=== PATIENT | female | born 1995 | race African-American/Black ===

== ENCOUNTER 2017-02-01 23:08 | Emergency (ER) | payer MEDICAID ==
[2017-02-01 23:09] VITALS: BP 127/79; PULSE 93; RESP 16; TEMP 98.5; O2SAT 97
[2017-02-01 23:30] VITALS: RESP 18; O2SAT 98
[2017-02-01] MEDS ORDERED: SODIUM CHLORIDE 0.9% FLUSH 10 ML FLUSH IVF PRN (23:30)
[2017-02-01 23:42] LABS: AUTOMATED NEUTROPHIL # 6.8 TH/MM3 (1.8-7.7); BASOPHIL # 0.1 TH/MM3 (0-0.2); BASOPHIL % 0.7 % (0.0-2.0); EOSINOPHIL # 0.3 TH/MM3 (0-0.4); EOSINOPHIL % 2.4 % (0.0-4.0); HEMATOCRIT 40.9 % (35.0-46.0); HEMO FLAGS DIFF FINAL; LYMPH % 35.7 % (9.0-44.0); LYMPHOCYTE # 4.3 TH/MM3 (1.0-4.8); MEAN CORPUSCULAR HEMOGLOBIN 27.3 PG (27.0-34.0); MEAN CORPUSCULAR HGB CONC 32.5 % (32.0-36.0); MONO % 4.6 % (0.0-8.0); NEUT % 56.6 % (16.0-70.0); PLATELET COUNT 402 TH/MM3 (150-450); RED BLOOD COUNT 4.87 MIL/MM3 (4.00-5.30); RED CELL DISTRIBUTION WIDTH 13.9 % (11.6-17.2)
[2017-02-01 23:44] LABS: BLOOD, URINE NEG (NEG); COMMENT (UR) CULT NOT INDICATED; CULTURE IF INDICATED CULT NOT INDICATED; GLUCOSE,URINE NEG (NEG); KETONE, URINE NEG (NEG); MUCUS URINE FEW /lpf (OCC); NITRITE,URINE NEG (NEG); SQUAMOUS EPITHELIAL CELL URINE 7 /hpf (0-5); URINE COLOR YELLOW (YELLW/STRAW)
--- NOTE | 2017-02-01 23:56 | PD ---
HPI Chief Complaint: Chest Pain Time Seen by Provider: 23:43 Travel History International Travel<30 days: No Contact w/Intl Traveler<30days: No Traveled to known affect area: No History of Present Illness HPI Patient is a 21-year-old female who presents to emergency room with chest pain. Patient reports that chest pain began last night while she was breast-feeding , reports that she felt a sharp and stabbing pain to her left chest with associated shortness of breath. Patient reports that symptoms have been constant all day, reports that she was concerned as nothing makes pain better or worse. Patient denies history of hypertension, hyperlipidemia, diabetes, [place] or ACS. Patient is unsure if she has a family history of early coronary artery disease. Patient reports that she is a nonsmoker, no history of PE or DVT. She is not on any bcp's at this time. Denies any recent travels or trips. Denies any recent immobilization. PFSH Past Medical History Medical History: Denies Significant Hx Asthma: Yes Diminished Hearing: No Respiratory: Yes (ASTHMA) Immunizations Current: Yes ?: Not LMP: 12/29 : 2 Para: 2 Past Surgical History Surgical History: No Previous Surgery Social History Alcohol Use: No Tobacco Use: No Substance Use: No Allergies-Medications (Allergen,Severity, Reaction): Coded Allergies: bee venom protein (honey bee) (Verified Allergy, Severe, Swelling, 02/01/17 ) Fish Containing Products (Verified Allergy, Mild, Swelling, 02/01/17) cephalexin (Verified Allergy, Mild, THROAT SWELLING, 02/01/17) penicillin G (Verified Allergy, Mild, THROAT SWELLING, 02/01/17) Reported Meds & Prescriptions Reported Meds & Active Scripts Active No Active Prescriptions or Reported Medications Review of Systems General / Constitutional: No: Fever Eyes: No: Visual changes HENT: No: Headaches Cardiovascular: Positive: Chest Pain or Discomfort Respiratory: Positive: Shortness of Breath Gastrointestinal: No: Abdominal Pain Genitourinary: No: Dysuria Musculoskeletal: No: Pain Skin: No Rash Neurologic: No: Weakness Psychiatric: No: Depression Endocrine: No: Polydipsia Hematologic/Lymphatic: No: Easy Bruising Physical Exam Narrative GENERAL: No acute distress, nontoxic SKIN: Focused skin assessment warm/dry. HEAD: Atraumatic. Normocephalic. EYES: Pupils equal and round. No scleral icterus. No injection or drainage. ENT: No nasal bleeding or discharge. Mucous membranes pink and moist. NECK: Trachea midline. No JVD. CARDIOVASCULAR: Regular rate and rhythm. No murmur appreciated. Chest pain is reproducible with palpation of left upper chest wall RESPIRATORY: No accessory muscle use. Clear to auscultation. Breath sounds equal bilaterally. GASTROINTESTINAL: Abdomen soft, non-tender, nondistended. Hepatic and splenic margins not palpable. MUSCULOSKELETAL: No obvious deformities. No clubbing. No cyanosis. No edema. NEUROLOGICAL: Awake and alert. No obvious cranial nerve deficits. Motor grossly within normal limits. Normal speech. PSYCHIATRIC: Appropriate mood and affect; insight and judgment normal. Data Data Last Documented VS Vital Signs Date Time Temp Pulse Resp B/P (MAP) Pulse Ox O2 Delivery O2 Flow Rate FiO2 02/01/17 23:30 18 98 Room Air 02/01/17 23:09 98.5 93 Orders Orders Electrocardiogram (02/01/17 23:21) Basic Metabolic Panel (Bmp) (02/01/17 23:21) Ckmb (Isoenzyme) Profile (02/01/17 23:21) Complete Blood Count With Diff (02/01/17 23:21) D-Dimer (02/01/17 23:21) Prothrombin Time / Inr (Pt) (02/01/17 23:21) Act Partial Throm Time (Ptt) (02/01/17 23:21) Troponin I (02/01/17 23:21) Chest, Single Ap (02/01/17 23:21) Ecg Monitoring (02/01/17 23:21) Iv Access Insert/Monitor (02/01/17 23:21) Oximetry (02/01/17 23:21) Sodium Chloride 0.9% Flush (Ns Flush) (02/01/17 23:30) Ed Urine Pregnancytest Poc (02/01/17 23:21) Urinalysis - C+S If Indicated (02/01/17 23:22) Drug Screen, Random Urine (02/01/17 23:23) Ketorolac Inj (Toradol Inj) (02/02/17 00:00) Ct Pulmonary Angiogram (02/02/17 00:26) Iohexol 350 Inj (Omnipaque 350 Inj) (02/02/17 00:50) Electrocardiogram (02/02/17 ) Labs Laboratory Tests Test 02/01/17 23:29 White Blood Count 12.0 TH/MM3 Red Blood Count 4.87 MIL/MM3 Hemoglobin 13.3 GM/DL Hematocrit 40.9 % Mean Corpuscular Volume 84.0 FL Mean Corpuscular Hemoglobin 27.3 PG Mean Corpuscular Hemoglobin Concent 32.5 % Red Cell Distribution Width 13.9 % Platelet Count 402 TH/MM3 Mean Platelet Volume 7.5 FL Neutrophils (%) (Auto) 56.6 % Lymphocytes (%) (Auto) 35.7 % Monocytes (%) (Auto) 4.6 % Eosinophils (%) (Auto) 2.4 % Basophils (%) (Auto) 0.7 % Neutrophils # (Auto) 6.8 TH/MM3 Lymphocytes # (Auto) 4.3 TH/MM3 Monocytes # (Auto) 0.6 TH/MM3 Eosinophils # (Auto) 0.3 TH/MM3 Basophils # (Auto) 0.1 TH/MM3 CBC Comment DIFF FINAL Differential Comment Prothrombin Time 10.4 SEC Prothromb Time International Ratio 0.9 RATIO Activated Partial Thromboplast Time 28.5 SEC D-Dimer Quantitative (PE/DVT) 1.01 MG/L FEU Urine Color YELLOW Urine Turbidity HAZY Urine pH 6.0 Urine Specific [place] 1.031 Urine Protein TRACE mg/dL Urine Glucose (UA) NEG mg/dL Urine Ketones NEG mg/dL Urine Occult Blood NEG Urine Nitrite NEG Urine Bilirubin NEG Urine Urobilinogen LESS THAN 2.0 MG/DL Urine Leukocyte Esterase MOD Urine RBC 1 /hpf Urine WBC 2 /hpf Urine Squamous Epithelial Cells 7 /hpf Urine Amorphous Sediment RARE Urine Mucus FEW /lpf Microscopic Urinalysis Comment CULT NOT INDICATED Blood Urea Nitrogen 11 MG/DL Creatinine 0.84 MG/DL Random Glucose 80 MG/DL Calcium Level 9.4 MG/DL Sodium Level 140 MEQ/L Potassium Level 3.7 MEQ/L Chloride Level 108 MEQ/L Carbon Dioxide Level 24.6 MEQ/L Anion Gap 7 MEQ/L Estimat Glomerular Filtration Rate 103 ML/MIN Total Creatine Kinase 97 U/L Troponin I LESS THAN 0.02 NG/ML Urine Opiates Screen NEG Urine Barbiturates Screen NEG Urine Amphetamines Screen NEG Urine Benzodiazepines Screen NEG Urine Cocaine Screen NEG Urine Cannabinoids Screen POS MDM Medical Decision Making Medical Screen Exam Complete: Yes Emergency Medical Condition: Yes Medical Record Reviewed: Yes Interpretation(s) EKG at 2335: NSR at 78bpm, qt/qtc: 386/419, no acute st or t wave changes Vital Signs Date Time Temp Pulse Resp B/P (MAP) Pulse Ox O2 Delivery O2 Flow Rate FiO2 02/01/17 23:30 18 98 Room Air 02/01/17 23:09 98.5 93 16 127/79 (95) 97 Room Air Differential Diagnosis Differential includes costochondritis, ACS, arrhythmia, electrolyte abnormality , PE, pneumothorax, pericarditis Narrative Course 21-year-old female who presents to emergency room complaints of chest pain. Chest pain has been ongoing since last night, pain is sharp and stabbing in nature and located her left chest. Patient has been constant, nothing makes pain better or worse Patient was placed on playground monitor upon arrival to the emergency room. Lab work including x-ray chest ordered. IV Toradol ordered. 1 set of ce was ordered to r/o infectious etiology of chest pain Vital Signs Date Time Temp Pulse Resp B/P (MAP) Pulse Ox O2 Delivery O2 Flow Rate FiO2 02/01/17 23:30 18 98 Room Air 02/01/17 23:09 98.5 93 16 127/79 (95) 97 Room Air Laboratory Tests Test 02/01/17 23:29 White Blood Count 12.0 TH/MM3 (4.0-11.0) Red Blood Count 4.87 MIL/MM3 (4.00-5.30) Hemoglobin 13.3 GM/DL (11.6-15.3) Hematocrit 40.9 % (35.0-46.0) Mean Corpuscular Volume 84.0 FL (80.0-100.0) Mean Corpuscular Hemoglobin 27.3 PG (27.0-34.0) Mean Corpuscular Hemoglobin Concent 32.5 % (32.0-36.0) Red Cell Distribution Width 13.9 % (11.6-17.2) Platelet Count 402 TH/MM3 (150-450) Mean Platelet Volume 7.5 FL (7.0-11.0) Neutrophils (%) (Auto) 56.6 % (16.0-70.0) Lymphocytes (%) (Auto) 35.7 % (9.0-44.0) Monocytes (%) (Auto) 4.6 % (0.0-8.0) Eosinophils (%) (Auto) 2.4 % (0.0-4.0) Basophils (%) (Auto) 0.7 % (0.0-2.0) Neutrophils # (Auto) 6.8 TH/MM3 (1.8-7.7) Lymphocytes # (Auto) 4.3 TH/MM3 (1.0-4.8) Monocytes # (Auto) 0.6 TH/MM3 (0-0.9) Eosinophils # (Auto) 0.3 TH/MM3 (0-0.4) Basophils # (Auto) 0.1 TH/MM3 (0-0.2) CBC Comment DIFF FINAL Differential Comment Prothrombin Time 10.4 SEC (9.8-11.6) Prothromb Time International Ratio 0.9 RATIO Activated Partial Thromboplast Time 28.5 SEC (24.3-30.1) D-Dimer Quantitative (PE/DVT) 1.01 MG/L FEU (0.00-0.50) Urine Color YELLOW (YELLW/STRAW) Urine Turbidity HAZY (CLEAR) Urine pH 6.0 (5.0-8.5) Urine Specific [place] 1.031 (1.002-1.035) Urine Protein TRACE mg/dL (NEG-TRACE) Urine Glucose (UA) NEG mg/dL (NEG) Urine Ketones NEG mg/dL (NEG) Urine Occult Blood NEG (NEG) Urine Nitrite NEG (NEG) Urine Bilirubin NEG (NEG) Urine Urobilinogen LESS THAN 2.0 MG/DL (LESS Urine Leukocyte Esterase MOD (NEG) Urine RBC 1 /hpf (0-3) Urine WBC 2 /hpf (0-5) Urine Squamous Epithelial Cells 7 /hpf (0-5) Urine Amorphous Sediment RARE Urine Mucus FEW /lpf (OCC) Microscopic Urinalysis Comment CULT NOT INDICATED Blood Urea Nitrogen 11 MG/DL (7-18) Creatinine 0.84 MG/DL (0.50-1.00) Random Glucose 80 MG/DL (74-106) Calcium Level 9.4 MG/DL (8.5-10.1) Sodium Level 140 MEQ/L (136-145) Potassium Level 3.7 MEQ/L (3.5-5.1) Chloride Level 108 MEQ/L (98-107) Carbon Dioxide Level 24.6 MEQ/L (21.0-32.0) Anion Gap 7 MEQ/L (5-15) Estimat Glomerular Filtration Rate 103 ML/MIN (>89) Total Creatine Kinase 97 U/L (26-192) Troponin I LESS THAN 0.02 NG/ML Urine Opiates Screen NEG (NEG) Urine Barbiturates Screen NEG (NEG) Urine Amphetamines Screen NEG (NEG) Urine Benzodiazepines Screen NEG (NEG) Urine Cocaine Screen NEG (NEG) Urine Cannabinoids Screen POS (NEG) Last Impressions Chest X-Ray 02/01/172320 Signed Impressions: Service Date/Time: Wednesday, February 01, 2017 23:39 - CONCLUSION: No acute disease. Shalom Rao Jr., MD Patient reports that she is feeling much better after the Toradol, patient does have positive d-dimer, discussed need for CTA to rule out PE. Patient consents to CTA. Last Impressions CT Angiography 02/02/17 0026 Signed Impressions: Service Date/Time: January 00:33 - CONCLUSION: Normal examination. Shalom Rao Jr., MD Chest X-Ray 02/01/172320 Signed Impressions: Service Date/Time: Wednesday, February 01, 2017 23:39 - CONCLUSION: No acute disease. Shalom Rao Jr., MD Repeat EKG with normal sinus rhythm at 71 beats a minute, no acute ST-T wave changes. Patient with a heart score of 0 Patient reports complete resolutions at this time after given toradol. Patient with most likely costochondritis, plan to discharge her home with anti- inflammatories. I reviewed all labs and all studies with patient in detail. Patient will follow-up with her primary doctor and will return to the emergency room as needed. Diagnosis Primary Impression: Acute costochondritis Patient Instructions: General Instructions Additional Instructions: Please follow-up with the primary care doctor and return to ER as needed Return to ER if symptoms return Med/Other Pt SpecificInfo: Prescription(s) given Scripts Ibuprofen (Ibuprofen) 600 Mg Tab 600 MG PO Q6H Y for Pain/Inflammation, #40 TAB 0 Refills Prov: Lu Zhang DO 02/02/17 Disposition: 01 DISCHARGE HOME Condition: Stable Lu Zhang DO Feb 01, 2017 23:56
[2017-02-01 23:57] LABS: ANION GAP 7 MEQ/L (5-15); BICARBONATE 24.6 MEQ/L (21.0-32.0); BLOOD UREA NITROGEN 11 MG/DL (7-18); CHLORIDE 108 MEQ/L (98-107); GLOMERULAR FILTRATION RATE 103 ML/MIN (>89); POTASSIUM 3.7 MEQ/L (3.5-5.1); SODIUM (NA) 140 MEQ/L (136-145)
--- NOTE | 2017-02-01 23:58 | RADRPT ---
EXAM DATE/TIME: 02/01/2017 23:39 [facility] COMPARISON: No previous studies available for comparison. INDICATIONS : Chest pain. MEDICAL HISTORY : Asthma. SURGICAL HISTORY : None. ENCOUNTER: Initial ACUITY: 1 day PAIN SCORE: 5/10 LOCATION: Bilateral chest FINDINGS: A single view of the chest demonstrates the lungs to be symmetrically aerated without evidence of mas s, infiltrate or effusion. The cardiomediastinal contours are unremarkable. Osseous structures are intact. CONCLUSION: No acute disease. Shalom Rao Jr., MD on February 01, 2017 at 23:56 Board Certified Radiologist. This report was verified electronically.
[2017-02-02] LABS: APTT (PATIENT) 28.5 SEC (24.3-30.1); INTERNATIONAL NORMALIZED RATIO 0.9 RATIO; PROTHROMBIN TIME - PATIENT 10.4 SEC (9.8-11.6)
[2017-02-02] MEDS ORDERED: KETOROLAC TROMETHAMINE 30 MG/ML (IVP) VIAL IV PUSH ONE
[2017-02-02 00:08] LABS: CREATINE KINASE 97 U/L (26-192)
[2017-02-02] MEDS ORDERED: IOHEXOL 350 MG/ML 10 ML VIAL (for RAD DIAG) IVCONTRAST ONE (00:50)
--- NOTE | 2017-02-02 00:55 | RADRPT ---
EXAM DATE/TIME: 02/02/2017 00:33 [facility] COMPARISON: No previous studies available for comparison. INDICATIONS : Chest pain and shortness of breath after drinking water. IV CONTRAST: 75 cc Omnipaque 350 (iohexol) IV RADIATION DOSE: 23.85 CTDIvol (mGy) MEDICAL HISTORY : None SURGICAL HISTORY : None. ENCOUNTER: Initial ACUITY: 1 day PAIN SCALE: 5/10 LOCATION: chest TECHNIQUE: Volumetric scanning of the chest was performed using a pulmonary embolism protocol MIP images were re constructed. Using automated exposure control and adjustment of the mA and/or kV according to patien t size, radiation dose was kept as low as reasonably achievable to obtain optimal diagnostic quality images. DICOM format image data is available electronically for review and comparison. Follow-up recommendations for detected pulmonary nodules are based at a minimum on nodule size and pa tient risk factors according to Fleischner Society Guidelines. FINDINGS: PULMONARY ARTERIES: No filling defects are seen in the pulmonary arteries through the segmental level. LUNGS: There is no consolidation or pneumothorax . No concerning pulmonary nodule is visualized. PLEURAE: There is no pleural thickening or pleural effusion. MEDIASTINUM: There is good visualization of the great vessels of the middle mediastinum. No evidence of mediastin al or hilar adenopathy/mass. MUSCULOSKELETAL: Within normal limits for patient age. MISCELLANEOUS: The visualized upper abdominal organs demonstrate no acute abnormality. CONCLUSION: Normal examination. Shalom Rao Jr., MD on February 02, 2017 at 0:52 Board Certified Radiologist. This report was verified electronically.
[2017-02-02] MEDS ORDERED: IBUP-232 PO (02:04)
--- NOTE | 2017-02-02 17:13 | EKG ---
Date Performed: 02/02/2017 Time Performed: 01:27:26 PTAGE: 21 years EKG: Sinus rhythm WITH SINUS ARRHYTHMIA NORMAL ECG Compared to the PREVIOUS TRACING , no significant change DOCTOR: Leobardo Sandhu Interpretating Date/Time 02/02/2017 17:11:07
--- NOTE | 2017-02-02 17:15 | EKG ---
Date Performed: 02/01/2017 Time Performed: 23:35:13 PTAGE: 21 years EKG: Sinus rhythm WITH SINUS ARRHYTHMIA NORMAL ECG NO PREVIOUS TRACING DOCTOR: Leobardo Sandhu Interpretating Date/Time 02/02/2017 17:14:52
== END 2017-02-02 02:20 | disposition home or self-care (01) ==
LOC: NEPE 23:08
DX: M94.0 Chondrocostal junction syndrome [Tietze] (principal); I49.8 Other specified cardiac arrhythmias; J45.909 Unspecified asthma, uncomplicated
CPT/HCPCS: 71010; 71275; 80048; 80307; 81001; 82550; 84484; 84703; 85025; 85379; 85610; 85730; 93005; 96374; 99285; J1885; Q9967

== ENCOUNTER 2017-09-20 15:34 | Emergency (ER) | payer MEDICAID ==
[~2017-09-20] VITALS: Ht 162.6 cm; Wt 127.2 kg
[~2017-09-20 15:34] MED LIST: IBUP-232 PO
[2017-09-20 15:46] VITALS: BP 118/60; PULSE 82; RESP 16; TEMP 97.7; O2SAT 98
[2017-09-20] MEDS ORDERED: SODIUM CHLOR 0.9% 1000 ML INJ 1,000 ML IV SCH (16:03)
[2017-09-20] MEDS ORDERED: SODIUM CHLORIDE 0.9% FLUSH 10 ML FLUSH IV FLUSH PRN (16:15)
[2017-09-20] MEDS ORDERED: ONDANSETRON ODT 4 MG TAB PO ONE (16:30)
--- NOTE | 2017-09-20 16:41 | PD ---
HPI Chief Complaint: [facility] Problem/Complaint Time Seen by Provider: 16:00 Travel History International Travel<30 days: No Contact w/Intl Traveler<30days: No Traveled to known affect area: No History of Present Illness HPI 22-year-old female presents to the emergency department with complaint of intermittent epigastric abdominal pain and pressure for the past 2 weeks. Reports nausea and vomiting onset this morning. Vomited 2 times. Has had something to drink without continued vomiting. Reports continued nausea. Denies fevers. Is also complaining of feeling faint and blurry vision that comes and goes for the past couple months, but occurred today at work prior to onset of the vomiting. Denies dysuria, hematuria, abnormal vaginal discharge or vaginal odor. Denies chest pain, shortness of breath. Reports being constipated for the past 2-3 weeks and having small, pebble-like bowel movements. Her last bowel movement was 2 days ago. Denies history of abdominal surgeries. Last menstrual period September 01. Denies contraception use. Symptoms are mild to moderate in severity. Says it is not a pain, but a discomfort, pressure, fullness. Intermittent. No known aggravating or relieving factors. Has tried taking Tylenol for relief of symptoms. No primary care provider. Allergies as listed on the chart. History of asthma. Has no other medical complaints. No other modifying factors or associated signs and symptoms. PFSH Past Medical History Asthma: Yes Diminished Hearing: No Respiratory: Yes (ASTHMA) Immunizations Current: Yes Tetanus Vaccination: Unknown Influenza Vaccination: No ?: Unknown LMP: SEPTEMBER 01 2017 : 3 Para: 3 Social History Alcohol Use: No Tobacco Use: No Substance Use: No Allergies-Medications (Allergen,Severity, Reaction): Coded Allergies: bee venom protein (honey bee) (Verified Allergy, Severe, Swelling, 02/01/17 ) Fish Containing Products (Verified Allergy, Mild, Swelling, 02/01/17) cephalexin (Verified Allergy, Mild, THROAT SWELLING, 02/01/17) penicillin G (Verified Allergy, Mild, THROAT SWELLING, 02/01/17) Reported Meds & Prescriptions Reported Meds & Active Scripts Active Diclofenac Sodium DR (Diclofenac Sodium) 75 Mg Tabdr 75 Mg PO BID Reglan (Metoclopramide HCl) 10 Mg Tab 10 Mg PO QID Ibuprofen 600 Mg Tab 600 Mg PO Q6H PRN Review of Systems Except as stated in HPI: all other systems reviewed are Neg Physical Exam Narrative GENERAL: Well-nourished, well-developed black female patient, in no acute distress; afebrile SKIN: Warm and dry. HEAD: Atraumatic. Normocephalic. EYES: Pupils equal and round. No scleral icterus. No injection or drainage. ENT: Mucosa pink and moist. Airway patent. NECK: Trachea midline. CARDIOVASCULAR: Regular rate and rhythm. No murmur appreciated. RESPIRATORY: No accessory muscle use. Clear to auscultation. Breath sounds equal bilaterally. GASTROINTESTINAL: Morbidly obese. Abdomen soft, tenderness on palpation to epigastric/right upper quadrant, nondistended. Hepatic and splenic margins not palpable. Bowel sounds are active 4 quadrants. Nonrigid. No rebound tenderness. No guarding. BACK: No CVA tenderness. MUSCULOSKELETAL: No obvious deformities. No clubbing. No cyanosis. No edema. NEUROLOGICAL: Awake and alert. Oriented 3. No obvious cranial nerve deficits. Motor grossly within normal limits. Normal speech. PSYCHIATRIC: Appropriate mood and affect; insight and judgment normal. Data Data Last Documented VS Vital Signs Date Time Temp Pulse Resp B/P (MAP) Pulse Ox O2 Delivery O2 Flow Rate FiO2 09/20/17 15:46 97.7 82 16 118/60 (79) 98 Orders Orders Urinalysis - C+S If Indicated (09/20/17 16:02) Ed Urine Pregnancytest Poc (09/20/17 16:02) Complete Blood Count With Diff (09/20/17 16:03) Comprehensive Metabolic Panel (09/20/17 16:03) Lipase (09/20/17 16:03) Iv Access Insert/Monitor (09/20/17 16:03) Sodium Chlor 0.9% 1000 Ml Inj (Ns 1000 M (09/20/17 16:03) Sodium Chloride 0.9% Flush (Ns Flush) (09/20/17 16:15) Ondansetron Odt (Zofran Odt) (09/20/17 16:30) Us Abdomen Gallbladder (09/20/17 ) Ketorolac Inj (Toradol Inj) (09/20/17 19:15) Diphenhydramine Inj (Benadryl Inj) (09/20/17 19:30) Prochlorperazine Inj (Compazine Inj) (09/20/17 19:30) Ed Discharge Order (09/20/17 20:20) Labs Laboratory Tests Test 09/20/17 16:30 09/20/17 18:00 White Blood Count 11.3 TH/MM3 Red Blood Count 4.41 MIL/MM3 Hemoglobin 12.3 GM/DL Hematocrit 36.5 % Mean Corpuscular Volume 82.7 FL Mean Corpuscular Hemoglobin 27.9 PG Mean Corpuscular Hemoglobin Concent 33.7 % Red Cell Distribution Width 13.5 % Platelet Count 323 TH/MM3 Mean Platelet Volume 8.4 FL Neutrophils (%) (Auto) 75.9 % Lymphocytes (%) (Auto) 18.4 % Monocytes (%) (Auto) 3.6 % Eosinophils (%) (Auto) 1.6 % Basophils (%) (Auto) 0.5 % Neutrophils # (Auto) 8.6 TH/MM3 Lymphocytes # (Auto) 2.1 TH/MM3 Monocytes # (Auto) 0.4 TH/MM3 Eosinophils # (Auto) 0.2 TH/MM3 Basophils # (Auto) 0.1 TH/MM3 CBC Comment DIFF FINAL Differential Comment Blood Urea Nitrogen 10 MG/DL Creatinine 0.71 MG/DL Random Glucose 91 MG/DL Total Protein 7.0 GM/DL Albumin 3.4 GM/DL Calcium Level 8.6 MG/DL Alkaline Phosphatase 94 U/L Aspartate Amino Transf (AST/SGOT) 9 U/L Alanine Aminotransferase (ALT/SGPT) 15 U/L Total Bilirubin 0.2 MG/DL Sodium Level 142 MEQ/L Potassium Level 3.7 MEQ/L Chloride Level 105 MEQ/L Carbon Dioxide Level 25.8 MEQ/L Anion Gap 11 MEQ/L Estimat Glomerular Filtration Rate 123 ML/MIN Lipase 100 U/L Urine Color LIGHT-YELLOW Urine Turbidity CLEAR Urine pH 7.0 Urine Specific [place] 1.017 Urine Protein NEG mg/dL Urine Glucose (UA) NEG mg/dL Urine Ketones NEG mg/dL Urine Occult Blood NEG Urine Nitrite NEG Urine Bilirubin NEG Urine Urobilinogen LESS THAN 2.0 MG/DL Urine Leukocyte Esterase TRACE Urine Squamous Epithelial Cells 4 /hpf Urine Mucus FEW /lpf Microscopic Urinalysis Comment CULT NOT INDICATED MDM Medical Decision Making Medical Screen Exam Complete: Yes Emergency Medical Condition: Yes Medical Record Reviewed: Yes Differential Diagnosis Cholelithiasis, cholecystitis, gastritis, constipation Narrative Course 22-year-old female with right upper quadrant abdominal pain 2 weeks and onset of nausea and vomiting today. Also complaining of episodes of dizziness and blurred vision that have been going on for the past few months. I discussed the patient with Dr. Zhang, my attending physician, and plan of care discussed. CBC, CMP, lipase, UPT, urinalysis, Zofran, Toradol, IV, IV fluid, right upper quadrant abdominal ultrasound ordered. UPT negative. CBC, CMP, lipase unremarkable. 1900: Report given to Alfredo Adrian PA-C at change of shift. See his note for final patient disposition. Urinalysis and ultrasound pending. Scripts Diclofenac Sodium DR (Diclofenac Sodium DR) 75 Mg Tabdr 75 MG PO BID, #20 TAB 0 Refills Prov: Lu Zhang DO 09/20/17 Metoclopramide (Reglan) 10 Mg Tab 10 MG PO QID, #20 TAB 0 Refills Prov: Lu Zhang DO 09/20/17 Nathalia Burton September 20, 2017 16:41
[2017-09-20 17:05] LABS: AUTOMATED NEUTROPHIL # 8.6 TH/MM3 (1.8-7.7); BASOPHIL # 0.1 TH/MM3 (0-0.2); BASOPHIL % 0.5 % (0.0-2.0); EOSINOPHIL # 0.2 TH/MM3 (0-0.4); EOSINOPHIL % 1.6 % (0.0-4.0); HEMATOCRIT 36.5 % (35.0-46.0); HEMOGLOBIN 12.3 GM/DL (11.6-15.3); LYMPH % 18.4 % (9.0-44.0); LYMPHOCYTE # 2.1 TH/MM3 (1.0-4.8); MEAN CELL VOLUME 82.7 FL (80.0-100.0); MEAN CORPUSCULAR HEMOGLOBIN 27.9 PG (27.0-34.0); MEAN CORPUSCULAR HGB CONC 33.7 % (32.0-36.0); MEAN PLATELET VOLUME 8.4 FL (7.0-11.0); MONO % 3.6 % (0.0-8.0); MONOCYTE # 0.4 TH/MM3 (0-0.9); NEUT % 75.9 % (16.0-70.0); PLATELET COUNT 323 TH/MM3 (150-450); RED BLOOD COUNT 4.41 MIL/MM3 (4.00-5.30); RED CELL DISTRIBUTION WIDTH 13.5 % (11.6-17.2); WHITE BLOOD COUNT 11.3 TH/MM3 (4.0-11.0)
[2017-09-20 17:33] LABS: ALBUMIN 3.4 GM/DL (3.4-5.0); AST (GOT) 9 U/L (15-37); BICARBONATE 25.8 MEQ/L (21.0-32.0); BLOOD UREA NITROGEN 10 MG/DL (7-18); CALCIUM 8.6 MG/DL (8.5-10.1); CHLORIDE 105 MEQ/L (98-107); CREATININE 0.71 MG/DL (0.50-1.00); GLOMERULAR FILTRATION RATE 123 ML/MIN (>89); GLUCOSE,RANDOM 91 MG/DL (74-106); SODIUM (NA) 142 MEQ/L (136-145)
[2017-09-20 17:38] LABS: ALKALINE PHOSPHATASE 94 U/L (45-117); ALT (GPT) 15 U/L (10-53); TOTAL BILIRUBIN ADULT 0.2 MG/DL (0.2-1.0)
[2017-09-20] MEDS ORDERED: KETOROLAC TROMETHAMINE 30 MG/ML (IVP) VIAL IV PUSH ONE (19:15)
--- NOTE | 2017-09-20 19:22 | RADRPT ---
EXAM DATE/TIME: 09/20/2017 18:47 [facility] COMPARISON: No previous studies available for comparison. INDICATIONS : Right upper quadrant pain. MEDICAL HISTORY : Asthma. SURGICAL HISTORY : None. ENCOUNTER: Initial ACUITY: 1 day PAIN SCORE: 7/10 LOCATION: Right upper quadrant MEASUREMENTS: LIVER: 21.4 cm length COMMON DUCT: 4 mm RIGHT KIDNEY: 9.0 x 4.5 x 3.6 cm FINDINGS: LIVER: Normal echotexture without focal lesion or ductal dilatation. COMMON DUCT: No intraluminal mass or stone visualized. GALLBLADDER: Contains no stones, demonstrates no wall thickening or pericholecystic fluid. PANCREAS: The visualized portions are within normal limits. RIGHT KIDNEY: No evidence of hydronephrosis, stone, or mass. CONCLUSION: No acute disease. Dino Martin MD on September 20, 2017 at 19:19 Board Certified Radiologist. This report was verified electronically.
[2017-09-20] MEDS ORDERED: PROCHLORPERAZINE INJ 10 MG/2 ML VIAL IV PUSH ONE (19:30)
[2017-09-20] MEDS ORDERED: diphenhydrAMINE HCL 50 MG/ML VIAL IV PUSH ONE (19:30)
[2017-09-20 19:31] LABS: BILIRUBIN, URINE NEG (NEG); BLOOD, URINE NEG (NEG); GLUCOSE,URINE NEG (NEG); KETONE, URINE NEG (NEG); MUCUS URINE FEW /lpf (OCC); NITRITE,URINE NEG (NEG); SQUAMOUS EPITHELIAL CELL URINE 4 /hpf (0-5); URINE COLOR LIGHT-YELLOW (YELLW/STRAW); URINE LEUKOCYTE ESTERASE TRACE (NEG)
[2017-09-20] MEDS ORDERED: DICL75TA PO (20:24)
[2017-09-20] MEDS ORDERED: REGL10TA5 PO (20:24)
--- NOTE | 2017-09-20 20:32 | PD ---
Physical Exam Date Seen by Provider: September 20, 2017 Time Seen by Provider: 20:27 Narrative GENERAL: This is a well-nourished, well-developed patient, in no apparent distress. SKIN: No rashes, ecchymoses or lesions. Warm and dry. HEAD: Atraumatic. Normocephalic. EYES: PERRL, EOMI, no discharge or injection. No scleral icterus. EARS: Clear NOSE: Nasal turbinates appear normal. THROAT: Mucosa pink and moist. Airway patent. NECK: Trachea midline. supple, moves head freely. LUNGS: Clear to auscultation. CV: Regular in rhythm. ABDOMEN: Soft nontender. Obese. No guarding or rebound. No CVA a tenderness EXT: No clubbing cyanosis or edema. Data Data Last Documented VS Vital Signs Date Time Temp Pulse Resp B/P (MAP) Pulse Ox O2 Delivery O2 Flow Rate FiO2 09/20/17 15:46 97.7 82 16 118/60 (79) 98 Orders Orders Urinalysis - C+S If Indicated (09/20/17 16:02) Ed Urine Pregnancytest Poc (09/20/17 16:02) Complete Blood Count With Diff (09/20/17 16:03) Comprehensive Metabolic Panel (09/20/17 16:03) Lipase (09/20/17 16:03) Iv Access Insert/Monitor (09/20/17 16:03) Sodium Chlor 0.9% 1000 Ml Inj (Ns 1000 M (09/20/17 16:03) Sodium Chloride 0.9% Flush (Ns Flush) (09/20/17 16:15) Ondansetron Odt (Zofran Odt) (09/20/17 16:30) Us Abdomen Gallbladder (09/20/17 ) Ketorolac Inj (Toradol Inj) (09/20/17 19:15) Diphenhydramine Inj (Benadryl Inj) (09/20/17 19:30) Prochlorperazine Inj (Compazine Inj) (09/20/17 19:30) Ed Discharge Order (09/20/17 20:20) Labs Laboratory Tests Test 09/20/17 16:30 09/20/17 18:00 White Blood Count 11.3 TH/MM3 Red Blood Count 4.41 MIL/MM3 Hemoglobin 12.3 GM/DL Hematocrit 36.5 % Mean Corpuscular Volume 82.7 FL Mean Corpuscular Hemoglobin 27.9 PG Mean Corpuscular Hemoglobin Concent 33.7 % Red Cell Distribution Width 13.5 % Platelet Count 323 TH/MM3 Mean Platelet Volume 8.4 FL Neutrophils (%) (Auto) 75.9 % Lymphocytes (%) (Auto) 18.4 % Monocytes (%) (Auto) 3.6 % Eosinophils (%) (Auto) 1.6 % Basophils (%) (Auto) 0.5 % Neutrophils # (Auto) 8.6 TH/MM3 Lymphocytes # (Auto) 2.1 TH/MM3 Monocytes # (Auto) 0.4 TH/MM3 Eosinophils # (Auto) 0.2 TH/MM3 Basophils # (Auto) 0.1 TH/MM3 CBC Comment DIFF FINAL Differential Comment Blood Urea Nitrogen 10 MG/DL Creatinine 0.71 MG/DL Random Glucose 91 MG/DL Total Protein 7.0 GM/DL Albumin 3.4 GM/DL Calcium Level 8.6 MG/DL Alkaline Phosphatase 94 U/L Aspartate Amino Transf (AST/SGOT) 9 U/L Alanine Aminotransferase (ALT/SGPT) 15 U/L Total Bilirubin 0.2 MG/DL Sodium Level 142 MEQ/L Potassium Level 3.7 MEQ/L Chloride Level 105 MEQ/L Carbon Dioxide Level 25.8 MEQ/L Anion Gap 11 MEQ/L Estimat Glomerular Filtration Rate 123 ML/MIN Lipase 100 U/L Urine Color LIGHT-YELLOW Urine Turbidity CLEAR Urine pH 7.0 Urine Specific [place] 1.017 Urine Protein NEG mg/dL Urine Glucose (UA) NEG mg/dL Urine Ketones NEG mg/dL Urine Occult Blood NEG Urine Nitrite NEG Urine Bilirubin NEG Urine Urobilinogen LESS THAN 2.0 MG/DL Urine Leukocyte Esterase TRACE Urine Squamous Epithelial Cells 4 /hpf Urine Mucus FEW /lpf Microscopic Urinalysis Comment CULT NOT INDICATED MDM Medical Record Reviewed: Yes Supervised Visit with ALEXANDER: Yes Interpretation(s) Laboratory Tests Test 09/20/17 16:30 09/20/17 18:00 White Blood Count 11.3 TH/MM3 Red Blood Count 4.41 MIL/MM3 Hemoglobin 12.3 GM/DL Hematocrit 36.5 % Mean Corpuscular Volume 82.7 FL Mean Corpuscular Hemoglobin 27.9 PG Mean Corpuscular Hemoglobin Concent 33.7 % Red Cell Distribution Width 13.5 % Platelet Count 323 TH/MM3 Mean Platelet Volume 8.4 FL Neutrophils (%) (Auto) 75.9 % Lymphocytes (%) (Auto) 18.4 % Monocytes (%) (Auto) 3.6 % Eosinophils (%) (Auto) 1.6 % Basophils (%) (Auto) 0.5 % Neutrophils # (Auto) 8.6 TH/MM3 Lymphocytes # (Auto) 2.1 TH/MM3 Monocytes # (Auto) 0.4 TH/MM3 Eosinophils # (Auto) 0.2 TH/MM3 Basophils # (Auto) 0.1 TH/MM3 CBC Comment DIFF FINAL Differential Comment Blood Urea Nitrogen 10 MG/DL Creatinine 0.71 MG/DL Random Glucose 91 MG/DL Total Protein 7.0 GM/DL Albumin 3.4 GM/DL Calcium Level 8.6 MG/DL Alkaline Phosphatase 94 U/L Aspartate Amino Transf (AST/SGOT) 9 U/L Alanine Aminotransferase (ALT/SGPT) 15 U/L Total Bilirubin 0.2 MG/DL Sodium Level 142 MEQ/L Potassium Level 3.7 MEQ/L Chloride Level 105 MEQ/L Carbon Dioxide Level 25.8 MEQ/L Anion Gap 11 MEQ/L Estimat Glomerular Filtration Rate 123 ML/MIN Lipase 100 U/L Urine Color LIGHT-YELLOW Urine Turbidity CLEAR Urine pH 7.0 Urine Specific [place] 1.017 Urine Protein NEG mg/dL Urine Glucose (UA) NEG mg/dL Urine Ketones NEG mg/dL Urine Occult Blood NEG Urine Nitrite NEG Urine Bilirubin NEG Urine Urobilinogen LESS THAN 2.0 MG/DL Urine Leukocyte Esterase TRACE Urine Squamous Epithelial Cells 4 /hpf Urine Mucus FEW /lpf Microscopic Urinalysis Comment CULT NOT INDICATED Last 24 hours Impressions Gall Bladder Ultrasound 09/20/17 0000 Signed Impressions: Service Date/Time: Wednesday, September 20, 2017 18:47 - CONCLUSION: No acute disease. Dino Martin MD Differential Diagnosis MDM: High Differential diagnoses: Acute cholecystitis, GERD, gastritis, colitis, nonspecific abdominal pain, gastroparesis, electrolyte abnormality, dehydration , drug-seeking, malingering Narrative Course IV access has been obtained. Patient is given liter bolus of saline, Toradol 30 mg IV, Benadryl and Compazine. Patient's symptoms have resolved. Ultrasound the gallbladder is unremarkable. Laboratory tests have been reviewed. Patient has been feeling improved. She has taken oral fluids without vomiting. At this time I see no other need for further imaging or admission today. Patient is instructed to follow-up with primary care doctor as well as GI in the next week. Patient is medically stable for discharge. This is abdominal pain Diagnosis Primary Impression: Abdominal pain Patient Instructions: General Instructions Additional Instruction: Rest. Increase fluids. Reglan and diclofenac. Follow-up with a primary care doctor in the next 3-7 days for recheck. Follow-up with a GI specialist in 1 week. Return to the ER if any problems. Med/Other Pt SpecificInfo: Prescription(s) given Scripts Diclofenac Sodium DR (Diclofenac Sodium DR) 75 Mg Tabdr 75 MG PO BID, #20 TAB 0 Refills Prov: Lu Zhang DO 09/20/17 Metoclopramide (Reglan) 10 Mg Tab 10 MG PO QID, #20 TAB 0 Refills Prov: Lu Zhang DO 09/20/17 Disposition: 01 DISCHARGE HOME Condition: Stable Alfredo Adrian September 20, 2017 20:32
== END 2017-09-20 21:03 | disposition home or self-care (01) ==
LOC: NEPD 15:34
DX: R10.13 Epigastric pain (principal); R11.2 Nausea with vomiting, unspecified
CPT/HCPCS: 76705; 80053; 81001; 83690; 84703; 85025; 96361; 96374; 96375; 99284; J0780; J1200; J1885; J7030